=== PATIENT | female | born 1970 | race Caucasian/White ===

== ENCOUNTER 2017-12-05 17:24 | Emergency (ER) | payer OTHER ==
[2017-12-05] MEDS ORDERED: CEFTRIAXONE SODIUM 1 GM in 0.9 % SODIUM CHLORIDE 100ML 100 ML IVPB ONE (18:02)
--- NOTE | 2017-12-05 18:05 | Emergency Department Record ---
History of Present Illness - General Chief Complaint: Animal Bite Stated Complaint: CAT BITE Time Seen by Provider: 12/05/17 17:53 Source: Patient Mode of Arrival: Ambulatory Limitations: No limitations - History of Present Illness Initial Comments: The patient is here due to a cat bite. She was bit over the dorsal L hand by her own cat about 24 hours ago. She did go to an in [place] after and did get a Td shot and started on Augmentin. Now today the hand seems to be getting more painful and red. She denies any numbness. The cat's rabies shots are UTD. Complaint: Animal bite Onset/Timin -: Days(s) Animal: Cat Description: Household pet Mechanism: Bite Pain Description: Sharp Severity scale (1-10): 4 Context: Unprovoked Associated Symptoms: Erythema Treatments Prior to Arrival: Other - Related Data Home Medications Medication Instructions Recorded Confirmed Last Taken Amoxicillin/Potassium Clav [Amox 1 each PO BID 12/05/17 12/05/17 Unknown Tr-K Clv 875-125 mg Tab] Allergies Allergy/AdvReac Type Severity Reaction Status Date / Time No Known Drug Allergies Allergy Verified 12/05/17 17:46 Travel Screening - Travel/Exposure Within Last 30 Days Have you traveled within the last 30 days?: No Review of Systems Constitutional: Denies: Chills, Fever, Other ENT: Denies: Congestion, Throat pain Respiratory: Denies: Dyspnea Past Medical History - SOCIAL HISTORY Smoking Status: Former smoker Alcohol Use: None Drug Use: None - RESPIRATORY Hx Respiratory Disorders: No - CARDIOVASCULAR Hx Cardio Disorders: No - NEURO Hx Neuro Disorders: No - GI Hx GI Disorders: No - Hx Genitourinary Disorders: No - ENDOCRINE Hx Endocrine Disorders: No - MUSCULOSKELETAL Hx Musculoskeletal Disorders: No - PSYCH Hx Psych Problems: Yes Hx Anxiety: Yes Hx Depression: Yes - HEMATOLOGY/ONCOLOGY Hx Hematology/Oncology Disorders: No Family Medical History Any Significant Family History?: No Physical Exam - General General Appearance: Alert, Cooperative, No acute distress - Head Head exam: Atraumatic, Normocephalic - Eye Eye exam: Normal appearance, PERRL - Extremities Extremities exam: Full ROM, Tenderness. negative: Normal inspection (There is erythema to the dorsal L hand with 3 very superficial PW's dorsally. The patient has good ROM to the fingers with no pain. There are no signs of any compartment syndrome or tenosynovitis.) Image of Hand: 1 - Area of pain, tenderness and erythema with very mild edema. - Neurological Neurological exam: Alert. negative: Motor sensory deficit Course Vital Signs 12/05/17 17:40 Temperature 98.1 F Pulse Rate 78 Respiratory 18 Rate Blood Pressure 121/87 Pulse Ox 100 - Reevaluation(s) Reevaluation #1: I did discuss the plan with the patient. She is to elevate and use warm compresses tonight and to return to the ER at 9am for recheck and repeat Abx's. 12/05/17 18:43 Disposition Disposition: Discharge Clinical Impression: Cat bite of hand Qualifiers: Encounter type: initial encounter Laterality: left Qualified Code(s): S61.452A - Open bite of left hand, initial encounter Disposition: Home, Self-Care Condition: (2) Stable Instructions: Animal Bite (ED) Additional Instructions: Please elevate the L hand tonight and use warm compresses to the red area as much as possible. Please continue the Augmentin and return to the ER at 9am tomorrow for recheck. Forms: Patient Portal Access Time of Disposition: 18:45 Quality - Quality Measures Quality Measures: N/A - Blood Pressure Screening View Details: Yes Does Patient Have Any of the Following: No Blood Pressure Classification: Pre-Hypertensive BP Reading Systolic Measurement: 121 Diastolic Measurement: 87 Screening for High Blood Pressure: < Pre-Hypertensive BP, F/U Documented > [ G8950] Pre-Hypertensive Follow-up Interventions: Referral to alternative/primary care provider.
== END 2017-12-05 19:14 | disposition home or self-care (01) ==
LOC: ER 17:24
DX: S61.452A Open bite of left hand, initial encounter (principal); W55.01XA Bitten by cat, initial encounter; Y92.009 Unspecified place in unspecified non-institutional (private) residence as the place of occurrence of the external cause; Z87.891 Personal history of nicotine dependence
CPT/HCPCS: 96365; 99284

== ENCOUNTER 2017-12-06 08:59 | Emergency (ER) | payer OTHER ==
[2017-12-06] MEDS ORDERED: CEFTRIAXONE SODIUM 1 GM in 0.9 % SODIUM CHLORIDE 100ML 100 ML IVPB ONE (09:05)
--- NOTE | 2017-12-06 09:08 | Emergency Department Record ---
History of Present Illness - General Chief Complaint: Wound, check Stated Complaint: IV THERAPY Time Seen by Provider: 12/06/17 09:05 Source: Patient Mode of arrival: Ambulatory Limitations: No limitations - History of Present Illness Initial Comments: The patient is here for a recheck of a L hand infection from a cat bite. She did receive Rocephin last evening. Now the patient states the L hand feels slightly improved with less pain and swelling. MD Complaint: Wound re-check - Related Data Allergies Allergy/AdvReac Type Severity Reaction Status Date / Time No Known Drug Allergies Allergy Verified 12/05/17 17:46 Review of Systems Constitutional: Denies: Chills, Fever Past Medical History - SOCIAL HISTORY Smoking Status: Former smoker Drug Use: None - RESPIRATORY Hx Respiratory Disorders: No - CARDIOVASCULAR Hx Cardio Disorders: No - NEURO Hx Neuro Disorders: No - GI Hx GI Disorders: No - Hx Genitourinary Disorders: No - ENDOCRINE Hx Endocrine Disorders: No - MUSCULOSKELETAL Hx Musculoskeletal Disorders: No - PSYCH Hx Psych Problems: Yes Hx Anxiety: Yes Hx Depression: Yes - HEMATOLOGY/ONCOLOGY Hx Hematology/Oncology Disorders: No Physical Exam - General General Appearance: Alert, Cooperative, No acute distress - Head Head exam: Atraumatic, Normocephalic - Eye Eye exam: Normal appearance, PERRL - Extremities Extremities exam: Full ROM, Normal capillary refill, Tenderness (Much improved from yesterday.). negative: Normal inspection (There is mild edema to the dorsal L hand but it is much better than yesterday. The erythema is also much improved. There is no warmth or draining lesions and the PW's from the bite are closed with no drainage. The patient has good ROM of the fingers and wrist with only mild discomfort.), Joint swelling Course - Reevaluation(s) Reevaluation #1: The patient is do continue to elevate the L hand and use warm compresses during the day. She is to F/U with her PCP early next week for recheck. 12/06/17 09:27 Disposition Disposition: Discharge Clinical Impression: Cat bite of hand Qualifiers: Encounter type: subsequent encounter Laterality: left Qualified Code(s): S61.452D - Open bite of left hand, subsequent encounter Disposition: Home, Self-Care Condition: (2) Stable Instructions: Wound Infection (ED) Additional Instructions: Please continue to elevate the splint the L hand for the next 2 days. Continue your home pain medicines and Augmentin as directed. Please see your family doctor for recheck in 2 days. Return to the ER for any worsening symptoms of pain, swelling, or fever. Forms: Patient Portal Access Time of Disposition: 09:29 Quality - Quality Measures Quality Measures: N/A - Blood Pressure Screening View Details: Yes Does Patient Have Any of the Following: No Blood Pressure Classification: Pre-Hypertensive BP Reading Systolic Measurement: 115 Diastolic Measurement: 81 Screening for High Blood Pressure: < Pre-Hypertensive BP, F/U Documented > [ G8950] Pre-Hypertensive Follow-up Interventions: Referral to alternative/primary care provider.
== END 2017-12-06 09:57 | disposition home or self-care (01) ==
LOC: ER 08:59
DX: S61.452A Open bite of left hand, initial encounter (principal); W55.01XA Bitten by cat, initial encounter; Y92.009 Unspecified place in unspecified non-institutional (private) residence as the place of occurrence of the external cause; Z87.891 Personal history of nicotine dependence
CPT/HCPCS: 96374; 99282